=== PATIENT | female | born 1995 | race Caucasian/White ===

== ENCOUNTER 2019-08-01 09:59 | Outpatient (CLI) | payer OTHER ==
[~2019-08-01 09:59] MED LIST: LEVSIN/SL0.125 MG PO; ZANTAC 7575 MG; ZOFRAN4 MG PO
== END 2019-08-01 10:09 | disposition home or self-care (01) ==
LOC: RAD 09:59
DX: M79.641 Pain in right hand (principal)

== ENCOUNTER 2019-08-01 13:17 | Outpatient (CLI) | payer OTHER | END 2019-08-01 13:24 | disposition home or self-care (01) | LOC: LAB 13:17 | DX: E88.89 Other specified metabolic disorders (principal); E56.1 Deficiency of vitamin K; E55.9 Vitamin D deficiency, unspecified; M85.88 Other specified disorders of bone density and structure, other site ==